=== PATIENT | male | born 1965 | race Caucasian/White ===

== ENCOUNTER 2017-02-17 15:45 | Emergency (ER) | payer OTHER ==
[~2017-02-17] VITALS: Ht 188 cm; Wt 90.0 kg
[~2017-02-17 15:45] MED LIST: ASPI81 PO; CORE25TA PO; HUMALOG SQ; LANTUSP SQ; LISI2.5T3 PO; OMEP20CA5 PO; TAB-TAB PO
[2017-02-17 15:48] VITALS: BP 116/67; PULSE 80; RESP 16; TEMP 98.3; O2SAT 98
--- NOTE | 2017-02-17 15:52 | PD ---
Physical Exam Date Seen by Provider: Feb 17, 2017 Time Seen by Provider: 15:49 Data Data Last Documented VS Vital Signs Date Time Temp Pulse Resp B/P Pulse Ox O2 Delivery O2 Flow Rate FiO2 02/17/17 15:48 98.3 80 16 116/67 98 MDM Supervised Visit with WISAM: No Narrative Course 51 YO M with complaint of N/V/D and LLQ abdominal cramping since yesterday. --F. Hx DM. Taking insulin, but not checking BG. Waiting on a glucometer. Vitals reviewed. Patient seen in triage, awaiting bed placement. Tri Narvaez Feb 17, 2017 15:52
[2017-02-17] MEDS ORDERED: SODIUM CHLOR 0.9% 1000 ML INJ 1,000 ML IV SCH (16:19)
[2017-02-17] MEDS ORDERED: SODIUM CHLORIDE 0.9% FLUSH 10 ML FLUSH IV FLUSH PRN (16:30)
[2017-02-17] MEDS ORDERED: ONDANSETRON HCL 4 MG/2 ML VIAL IV PUSH ONE (16:30)
--- NOTE | 2017-02-17 16:40 | PD ---
HPI Chief Complaint: GI Complaint Time Seen by Provider: 16:03 Travel History International Travel<30 days: No Contact w/Intl Traveler<30days: No Traveled to known affect area: No History of Present Illness HPI 51-year-old male presents with nonbloody vomiting and diarrhea with intermittent abdominal cramping over the past day and a half. He states that he has not been around any specific sick contacts. He denies any other concurrent complaints including fever. Quality is nonbloody. Severity is a couple of episodes. He notes more diarrhea than vomiting. He states he wanted to come in earlier today before it got worse like when he had last year. He states he doesn't have stuff to check his sugars at home but up front it was 270 or so. Quality is crampy. Severity is moderate. PFSH Past Medical History Blood Disorders: No Depression: Yes Heart Rhythm Problems: Yes (DEFIB/PACEMAKER PLACED) Cancer: No Cardiovascular Problems: Yes Diabetes: Yes Patient Takes Glucophage: No Diverticulitis: Yes Gastrointestinal Disorders: Yes (COLON AND LARGE INTESTINE REMOVED; DIVERTICULITIS;REFLUX) Genitourinary: No Immune Disorder: No Musculoskeletal: No Neurologic: No Reproductive: No Respiratory: No Myocardial Infarction: Yes Triglycerides - High: Yes ?: Not Past Surgical History AICD: Yes Appendectomy: Yes Body Medical Devices: CORONARY STENTS Cardiac Surgery: Yes (PACER/DEFIB IN PLACE) Coronary Stent: Yes (, 2003) Pacemaker: Yes Other Surgery: Yes (LG.BOWEL REMOVED FROM Divertiulitis ) Social History Alcohol Use: Yes (RARELY) Tobacco Use: No (quit ) Substance Use: No Allergies-Medications (Allergen,Severity, Reaction): Coded Allergies: Glucophage (Verified Allergy, Severe, 07/23/10) VOMITING Lortab (Verified Allergy, Severe, Hallucinations, 07/23/10) Reported Meds & Prescriptions Reported Meds & Active Scripts Active Zofran Odt (Ondansetron Odt) 4 Mg Tab 4 Mg SL Q6HR PRN Reported Levemir Inj (Insulin Detemir) 1,000 unit/ 10 ML Vial 85 Units SQ HS Do not mix with any other Insulin. Spironolactone 25 Mg Tab 25 Mg PO DAILY Effient (Prasugrel) 10 Mg Tab 10 Mg PO DAILY Atorvastatin (Atorvastatin Calcium) 40 Mg Tab 40 Mg PO HS Paxil CR (Paroxetine HCl) 25 Mg Tab 25 Mg PO DAILY Omeprazole 20 Mg Tab 20 Mg PO BID Multiple Vitamin 1 Tab 1 Tab PO DAILY Lisinopril 5 Mg Tab 5 Mg PO DAILY Novolog Inj (Insulin Aspart) 1,000 Unit/10 Ml Vial 48 Units SQ BID Coreg (Carvedilol) 25 Mg Tab 25 Mg PO BID Aspirin DR (Aspirin) 81 Mg Tabdr 81 Mg PO HS Review of Systems Except as stated in HPI: all other systems reviewed are Neg Physical Exam Narrative GENERAL: Well-nourished, well-developed patient. SKIN: Warm and dry. HEAD: Normocephalic and atraumatic. EYES: No injection or drainage. ENT: No nasal drainage noted. NECK: Supple, trachea midline. CARDIOVASCULAR: Regular rate and rhythm RESPIRATORY: no increased effort. No accessory muscle use. GASTROINTESTINAL: Abdomen soft, non-tender, nondistended. NEUROLOGICAL: Awake and alert. Motor and sensory grossly within normal limits. Normal speech. Data Data Last Documented VS Vital Signs Date Time Temp Pulse Resp B/P Pulse Ox O2 Delivery O2 Flow Rate FiO2 02/17/17 18:17 95 Room Air 02/17/17 16:12 16 02/17/17 15:48 98.3 80 116/67 Orders Basic Metabolic Panel (Bmp) (02/17/17 16:19) Complete Blood Count With Diff (02/17/17 16:19) Iv Access Insert/Monitor (02/17/17 16:19) Ecg Monitoring (02/17/17 16:19) Oximetry (02/17/17 16:19) NPO (02/17/17 16:19) Sodium Chlor 0.9% 1000 Ml Inj (Ns 1000 M (02/17/17 16:19) Sodium Chloride 0.9% Flush (Ns Flush) (02/17/17 16:30) Ondansetron Inj (Zofran Inj) (02/17/17 16:30) Labs Laboratory Tests Test 02/17/17 14:43 White Blood Count 6.8 TH/MM3 Red Blood Count 4.95 MIL/MM3 Hemoglobin 14.8 GM/DL Hematocrit 41.7 % Mean Corpuscular Volume 84.2 FL Mean Corpuscular Hemoglobin 29.8 PG Mean Corpuscular Hemoglobin 35.4 % Concent Red Cell Distribution Width 12.9 % Platelet Count 119 TH/MM3 Mean Platelet Volume 10.5 FL Neutrophils (%) (Auto) 63.2 % Lymphocytes (%) (Auto) 25.7 % Monocytes (%) (Auto) 8.8 % Eosinophils (%) (Auto) 2.0 % Basophils (%) (Auto) 0.3 % Neutrophils # (Auto) 4.3 TH/MM3 Lymphocytes # (Auto) 1.7 TH/MM3 Monocytes # (Auto) 0.6 TH/MM3 Eosinophils # (Auto) 0.1 TH/MM3 Basophils # (Auto) 0.0 TH/MM3 CBC Comment DIFF FINAL Differential Comment Sodium Level 137 MEQ/L Potassium Level 4.3 MEQ/L Chloride Level 103 MEQ/L Carbon Dioxide Level 27.9 MEQ/L Anion Gap 6 MEQ/L Blood Urea Nitrogen 16 MG/DL Creatinine 0.96 MG/DL Estimat Glomerular Filtration 83 ML/MIN Rate Random Glucose 246 MG/DL Calcium Level 8.6 MG/DL MDM Medical Decision Making Medical Screen Exam Complete: Yes Emergency Medical Condition: Yes Medical Record Reviewed: Yes (pmh confirmed) Interpretation(s) CBC & BMP Diagram 02/17/17 14:43 Differential Diagnosis Dehydration, acute renal failure, electrolyte abnormality, colitis, diverticulitis Narrative Course Will check blood work and dose with IV fluids and Zofran and reevaluate. Patient agrees to workup as ordered labs with no emergent findings, no emesis here, Patient denies any new complaints and states that they are feeling better. Patient happy with care, all questions answered. Patient knows that follow up is incumbent on them and to return to the emergency room immediately if new or worsening symptoms develop. Patient given strict return precautions, vitals reviewed and are normal , agrees to further workup as an outpatient. Diagnosis Primary Impression: Vomiting and diarrhea Patient Instructions: General Instructions Additional Instructions: Return as needed, Zofran as needed, follow with primary this week for recheck Med/Other Pt SpecificInfo: Prescription(s) given Scripts Ondansetron Odt (Zofran Odt)4 Mg Tab4 Mg SL Q6HR PRN (Nausea/Vomiting) #10 TAB Prov:Caren Doty MD 02/17/17 Disposition: 01 DISCHARGE HOME Condition: Stable Caren Doty MD Feb 17, 2017 16:40
[2017-02-17 17:14] LABS: AUTOMATED NEUTROPHIL # 4.3 TH/MM3 (1.8-7.7); BASOPHIL % 0.3 % (0.0-2.0); EOSINOPHIL # 0.1 TH/MM3 (0-0.4); HEMATOCRIT 41.7 % (39.0-51.0); HEMO FLAGS DIFF FINAL; LYMPH % 25.7 % (9.0-44.0); LYMPHOCYTE # 1.7 TH/MM3 (1.0-4.8); MEAN CELL VOLUME 84.2 FL (80.0-100.0); MEAN CORPUSCULAR HEMOGLOBIN 29.8 PG (27.0-34.0); MEAN CORPUSCULAR HGB CONC 35.4 % (32.0-36.0); MONO % 8.8 % (0.0-8.0); NEUT % 63.2 % (16.0-70.0); PLATELET COUNT 119 TH/MM3 (150-450); RED BLOOD COUNT 4.95 MIL/MM3 (4.50-5.90); RED CELL DISTRIBUTION WIDTH 12.9 % (11.6-17.2); WHITE BLOOD COUNT 6.8 TH/MM3 (4.0-11.0)
[2017-02-17 17:31] LABS: BICARBONATE 27.9 MEQ/L (21.0-32.0); POTASSIUM 4.3 MEQ/L (3.5-5.1)
[2017-02-17 18:17] VITALS: O2SAT 95
[2017-02-17] MEDS ORDERED: MULTTAB67 PO (18:17)
[2017-02-17] MEDS ORDERED: OMEP20TA PO (18:17)
[2017-02-17] MEDS ORDERED: NOVOLOGP2 SQ (18:17)
[2017-02-17] MEDS ORDERED: ASPI81TA5 PO (18:17)
[2017-02-17] MEDS ORDERED: PAXI25TA5 PO (18:17)
[2017-02-17] MEDS ORDERED: CORE25TA PO (18:17)
[2017-02-17] MEDS ORDERED: SPIR25TA PO (18:17)
[2017-02-17] MEDS ORDERED: ATOR40TA16 PO (18:17)
[2017-02-17] MEDS ORDERED: LISI-519 PO (18:17)
[2017-02-17] MEDS ORDERED: LEVEMIR SQ (18:17)
[2017-02-17] MEDS ORDERED: PRAS10TA PO (18:17)
[2017-02-17] MEDS ORDERED: ZOFR4TAB3 SL (18:28)
== END 2017-02-17 18:51 | disposition home or self-care (01) ==
LOC: NEPC 15:45
DX: R11.10 Vomiting, unspecified (principal); R19.7 Diarrhea, unspecified; R10.9 Unspecified abdominal pain; E11.9 Type 2 diabetes mellitus without complications; E78.1 Pure hyperglyceridemia; I25.2 Old myocardial infarction; Z79.4 Long term (current) use of insulin; Z95.810 Presence of automatic (implantable) cardiac defibrillator; Z86.59 Personal history of other mental and behavioral disorders; Z86.79 Personal history of other diseases of the circulatory system; Z87.19 Personal history of other diseases of the digestive system
CPT/HCPCS: 80048; 85025; 96374; 99284; J2405; J7030